=== PATIENT | male | born 2005 | race African-American/Black ===

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

== ENCOUNTER 2024-05-17 21:41 | Inpatient (IN) ==
--- NOTE | 2024-05-17 22:09 | Emergency Department Note ---
History of Present Illness General Chief complaint: Overdose (Accidental) Stated complaint: TOO MUCH ADDERALL - NO SI Time Seen by Provider: 05/17/24 21:52 History of Present Illness Maximum Pain Intensity: 3 This is a 18-year-old male presenting to the emergency department for evaluation of unintentional Adderall overdose. Patient states that he has a project that is due and was taking his own Adderall to stay awake to complete the project. He admits to taking 30 of his 15 mg Adderall pills as well as to 12.5 mg pills. Patient was found by roommates, who contacted EMS. Patient states this was not to harm himself. No suicidal or homicidal ideation. Patient does not have significant complaints. He took all of the pills between approximately 7:30 PM and 9:30 PM. He rates his current discomfort a 3/10. Additional history was later brought to my attention by [facility] police, who arrived with a 302 petition. Evidently the patient has been sending vague and nonspecific goodbye messages to friends and family. It seems that the patient lives in a single resident housing at the [place], and one of his friends went to check on him. The patient was found essentially passed out by his friend, who then contacted EMS. [place] police did arrive, and the patient was in possession of a bag with several different medications. The bag included Flexeril, Vicodin, tramadol, as well as his Adderall and additional medications. It is unclear if the patient has been utilizing these medications tonight. Not all medications are prescribed to the patient according to [place] police. Home Medications Medication Instructions Recorded Confirmed Type dextroamphetamine-amphetamine 15 15 mg PO 05/18/24 History mg tablet escitalopram oxalate 20 mg tablet 20 mg DAILY 05/18/24 05/18/24 History (Lexapro) Allergies Allergy/AdvReac Type Severity Reaction Status Date / Time Penicillins Allergy Severe Anaphylaxis Unverified 05/18/24 04:48 lactose AdvReac Mild Diarrhea Unverified 05/18/24 04:49 Past Med/Surg History Problem List (Updated 05/18/24 @ 20:42 by Choco Salgado PA-C) Drug overdose (Acute) Mental health problem (Acute) Seasonal affective disorder in remission Stimulant intoxication Autism spectrum disorder ADHD (attention deficit hyperactivity disorder) No significant past surgical history No chronic diseases present Social History Smoking Status: Never smoker Tobacco Type: E-cigarettes / Vaping Preferred Language: Maltese Communication Ability: Effective Relationship Executive Required: No Beliefs That Will Affect Care: None Feels Safe at Home: Yes Gender Identity: Male Assistive Devices: Glasses Review of Systems A total of 10 systems reviewed and were otherwise negative Physical Exam Vital Signs Vital Signs - 24 hr 05/17/24 21:48 05/17/24 21:48 05/17/24 21:49 Temperature 37.1 C Temperature Source Oral Pulse Rate 106 H 98 H Pulse Rate [Apical] Respiratory Rate 20 Respiratory Effort / Characteristics Non-Labored Spontaneous Respiratory Depth Normal Respiratory Pattern Regular Blood Pressure 126/78 Blood Pressure [Right Arm] Blood Pressure Mean 94 Blood Pressure Mean [Right Arm] Blood Pressure Position [Right Arm] Pulse Oximetry 99 99 Oxygen Delivery Method Room Air Room Air Sepsis Recent Fever Within 48 Hours No Sepsis New/Unexplained Change in Mental Status No Sepsis Action Taken by Nursing No Action Required 05/17/24 22:00 05/17/24 22:22 05/18/24 00:00 Temperature Temperature Source Pulse Rate 104 H Pulse Rate [Apical] 90 93 H Respiratory Rate 18 16 20 Respiratory Effort / Characteristics Non-Labored Spontaneous Non-Labored Respiratory Depth Normal Normal Respiratory Pattern Regular Blood Pressure Blood Pressure [Right Arm] 126/64 126/64 Blood Pressure Mean Blood Pressure Mean [Right Arm] 84 84 Blood Pressure Position [Right Arm] Semi-fowlers Lying Pulse Oximetry 100 100 98 Oxygen Delivery Method Room Air Room Air Room Air Sepsis Recent Fever Within 48 Hours Sepsis New/Unexplained Change in Mental Status Sepsis Action Taken by Nursing 05/18/24 01:42 05/18/24 03:00 Temperature Temperature Source Pulse Rate 115 H Pulse Rate [Apical] 88 Respiratory Rate 20 Respiratory Effort / Characteristics Respiratory Depth Respiratory Pattern Blood Pressure Blood Pressure [Right Arm] 136/76 Blood Pressure Mean Blood Pressure Mean [Right Arm] 96 Blood Pressure Position [Right Arm] Pulse Oximetry 96 Oxygen Delivery Method Sepsis Recent Fever Within 48 Hours Sepsis New/Unexplained Change in Mental Status Sepsis Action Taken by Nursing VITALS: Vitals are noted on the nurse's note and reviewed by myself. Vital signs stable. GENERAL: Well-developed, well-nourished, black male, who is in no acute distress and resting comfortably. Patient is cooperative with the examination. HEAD: Normocephalic atraumatic. EARS: External ear normal. External auditory canals clear, tympanic membranes pearly morfin without erythema or effusion bilaterally. EYES: Pupils equal round and reactive to light and accommodation. Conjunctivae without injection, sclerae without icterus. Extraocular movements intact. NOSE: Patent, turbinates without inflammation or discharge. MOUTH: Mucous membranes moist. Tonsils are not enlarged. Pharynx without erythema, blood, or exudate. Uvula midline. Airway patent. NECK: Supple without nuchal rigidity. No lymphadenopathy. No thyromegaly. Cervical spine is nontender. HEART: Regular rate and rhythm without murmurs gallops or rubs. LUNGS: Clear to auscultation bilaterally without wheezes, rales or rhonchi. No retractions or accessory muscle use. ABDOMEN: Positive normal bowel sounds x 4. Soft, nontender, without masses or organomegaly. No guarding or rebound tenderness. MUSCULOSKELETAL: No muscle atrophy, erythema, or edema noted. Full range of motion in all extremities. NEURO: Patient was alert and oriented to person place and time. CN II through XII grossly intact. No focal neurological deficits. Deep tendon reflexes 2+ throughout. SKIN: The skin was without rashes, erythema, edema, or bruising. Capillary refill less than 2 seconds. Course Administered Medications Acetaminophen (Acetaminophen 325 Mg Tab) 650 mg PO Q4H PRN PRN Reason: Headache or Minor Fever Stop: 06/17/24 04:49 Last Admin: 05/18/24 08:20 Dose: 650 mg Documented By: [id number] Fluoxetine HCl (Fluoxetine Hcl 20 Mg Cap) 20 mg PO QAM [facility] Stop: 06/17/24 12:29 Last Admin: 05/18/24 13:14 Dose: 20 mg Documented By: ESPERANZA Discontinued Medications Sodium Chloride (Nss) 1,000 mls @ 999 mls/hr IV .Q1H1M ONE Stop: 05/17/24 22:58 Last Infusion: 05/17/24 23:35 Dose: Infused Documented By: Admin: 05/17/24 22:23 Dose: 999 mls/hr Documented By: ANIBAL Medical Decision Making Differential Diagnosis Differential diagnosis includes, but is not limited to: Medication abuse, medication overdose, stimulant abuse, SI/HI, myocardial infarction, dysrhythmia, pericarditis, pneumothorax, aortic aneurysm/dissection, DVT/PE, anxiety, GERD, PUD, electrolyte imbalance, thyroid disorder, pneumonia, bronchitis, pancreatitis, and others Laboratory Data 05/17/24 22:10 05/17/24 22:10 Lab Results 05/17/24 05/17/24 05/17/24 Range/Units 22:10 22:33 23:18 WBC 5.30 (4.8-10.8) K/ul RBC 4.99 (4.70-6.10) M/uL Hgb 15.4 (14.0-18.0) g/dl Hct 44.9 (42.0-52.0) % MCV 90.0 (80.0-100.0) fL MCH 30.9 (25.0-34.0) pg MCHC 34.3 (32.0-36.0) g/dL RDW Std Deviation 43.3 (36.4-46.3) fL RDW Coeff of Judy 13.1 (11.5-14.5) % Plt Count 151 (130-400) K/uL MPV 12.3 (9.4-12.4) fL Immature Gran % (Auto) 0.2 % Neut % (Auto) 61.6 % Lymph % (Auto) 31.3 % [place] % (Auto) 5.7 % Eos % (Auto) 0.6 % Baso % (Auto) 0.6 % Neut # (Auto) 3.27 (1.40-6.50) K/uL Lymph # (Auto) 1.66 (1.20-3.40) K/uL [place] # (Auto) 0.30 (0.11-0.59) K/uL Eos # (Auto) 0.03 (0.00-0.50) K/uL Baso # (Auto) 0.03 (0.00-0.20) K/uL Immature Gran # (Auto) 0.01 (0.01-0.20) K/uL Sodium 135 L (136-145) mmol/L Potassium 3.7 (3.5-5.1) mmol/L Chloride 101 (98-107) mmol/L Carbon Dioxide 27 (21-32) mmol/L Anion Gap 7 (3-11) BUN 7 (6-23) mg/dl Creatinine 1.02 (0.6-1.4) mg/dl Est Cr Clr Drug Dosing 124.2 ml/min eGFR 108.58 BUN/Creatinine Ratio 6.9 L (10-20) Glucose 92 (70-99(Fasting)) mg/dl Calcium 9.8 (8.6-10.3) mg/dl Magnesium 1.7 (1.7-2.4) mg/dl Total Bilirubin 1.3 H (0.2-1.0) mg/dl AST 27 (13-39) U/L ALT 12 (7-52) U/L Alkaline Phosphatase 75 (34-104) U/L Total Creatine Kinase 299 H (30-223) U/L Troponin I High Sens < 2.3 (0-20) pg/ml Total Protein 7.8 (6.0-8.3) gm/dl Albumin 4.6 (3.4-5.0) gm/dl Globulin 3.2 (2.5-4.0) gm/dl Albumin/Globulin Ratio 1.4 (0.9-2) Lipase 5 L (11-82) U/L Urine Color Yellow Urine Appearance Clear (Clear) Urine pH 7.0 (4.5-7.5) Ur Specific [place] 1.004 (1.000-1.030) Urine Protein Negative (Negative) Urine Glucose (UA) Negative (Negative) Urine Ketones Negative (Negative) Urine Blood Negative (Negative) Urine Nitrite Negative (Negative) Urine Bilirubin Negative (Negative) Urine Urobilinogen Negative (Negative) Ur Leukocyte Esterase Negative (Negative) Salicylates < 3.0 L (3.0-30) mg/dl Urine Opiates Screen Neg (Neg) Ur Methadone, Qual Neg (Neg) Urine Fentanyl Screen Neg (Neg) Acetaminophen < 3 L (10-30) ug/ml Urine Barbiturates Neg (Neg) Ur Phencyclidine (PCP) Neg (Neg) U Amphetamin/Meth Scrn Pos H (Neg) MDMA (Ecstasy) Screen Neg (Neg) U Benzodiazepines Scrn Neg (Neg) Ur Cocaine Metabolite Neg (Neg) U Marijuana (THC) Screen Neg (Neg) Ethyl Alcohol mg/dL < 10.0 (<10.0) mg/dl SARS-CoV-2 (PCR) (Negative) 05/18/24 Range/Units 02:03 WBC (4.8-10.8) K/ul RBC (4.70-6.10) M/uL Hgb (14.0-18.0) g/dl Hct (42.0-52.0) % MCV (80.0-100.0) fL MCH (25.0-34.0) pg MCHC (32.0-36.0) g/dL RDW Std Deviation (36.4-46.3) fL RDW Coeff of Judy (11.5-14.5) % Plt Count (130-400) K/uL MPV (9.4-12.4) fL Immature Gran % (Auto) % Neut % (Auto) % Lymph % (Auto) % [place] % (Auto) % Eos % (Auto) % Baso % (Auto) % Neut # (Auto) (1.40-6.50) K/uL Lymph # (Auto) (1.20-3.40) K/uL [place] # (Auto) (0.11-0.59) K/uL Eos # (Auto) (0.00-0.50) K/uL Baso # (Auto) (0.00-0.20) K/uL Immature Gran # (Auto) (0.01-0.20) K/uL Sodium (136-145) mmol/L Potassium (3.5-5.1) mmol/L Chloride (98-107) mmol/L Carbon Dioxide (21-32) mmol/L Anion Gap (3-11) BUN (6-23) mg/dl Creatinine (0.6-1.4) mg/dl Est Cr Clr Drug Dosing ml/min eGFR BUN/Creatinine Ratio (10-20) Glucose (70-99(Fasting)) mg/dl Calcium (8.6-10.3) mg/dl Magnesium (1.7-2.4) mg/dl Total Bilirubin (0.2-1.0) mg/dl AST (13-39) U/L ALT (7-52) U/L Alkaline Phosphatase (34-104) U/L Total Creatine Kinase (30-223) U/L Troponin I High Sens (0-20) pg/ml Total Protein (6.0-8.3) gm/dl Albumin (3.4-5.0) gm/dl Globulin (2.5-4.0) gm/dl Albumin/Globulin Ratio (0.9-2) Lipase (11-82) U/L Urine Color Urine Appearance (Clear) Urine pH (4.5-7.5) Ur Specific [place] (1.000-1.030) Urine Protein (Negative) Urine Glucose (UA) (Negative) Urine Ketones (Negative) Urine Blood (Negative) Urine Nitrite (Negative) Urine Bilirubin (Negative) Urine Urobilinogen (Negative) Ur Leukocyte Esterase (Negative) Salicylates (3.0-30) mg/dl Urine Opiates Screen (Neg) Ur Methadone, Qual (Neg) Urine Fentanyl Screen (Neg) Acetaminophen (10-30) ug/ml Urine Barbiturates (Neg) Ur Phencyclidine (PCP) (Neg) U Amphetamin/Meth Scrn (Neg) MDMA (Ecstasy) Screen (Neg) U Benzodiazepines Scrn (Neg) Ur Cocaine Metabolite (Neg) U Marijuana (THC) Screen (Neg) Ethyl Alcohol mg/dL (<10.0) mg/dl SARS-CoV-2 (PCR) NEGATIVE (Negative) MDM Narrative Physical exam and history were performed. Nursing notes, EMR, and Medication List were personally reviewed. No social concerns were identified as barriers to patients care. History was provided by the Patient, EMS, and [facility] police. Patient appears to have overdosed on Adderall. The patient's history is concerning, as he was identified having several pills that were not prescribed to him. These are primarily opioids and other similar sedatives. Patient does have history of mental health disease. He is evasive with answering questions. IV access was established and labs were obtained. Patient was hydrated with normal saline. Patient's case was discussed with my attending. I also reached out to poison control, and recommendation was to monitor the patient until roughly 2 AM. Patient's blood work is as above and was reviewed. He does not have a significantly elevated white blood cell count, gross anemia, bandemia, or significant electrolyte imbalance. Transaminases not diagnostic. Tylenol and salicylates are negative. COVID is negative. Urine is with amphetamines, which was expected. Remaining evaluation was unremarkable and patient was medically cleared at 02: 00. Patient was evaluated by case management, as well as my attending physician. The patient has a 302 completed by [place] police. After discussion with my attending physician, the patient is voluntary for mental health care. Escalation of care was considered, and patient was accepted to 3 S. at this facility. Patient was discharged to their service. The chart was completed utilizing [employer] Speech Voice Recognition Software. Grammatical errors, random word insertions, pronoun errors, and incomplete sentences are an occasional consequence of this system due to software limitations, ambient noise, and hardware issues. Any formal questions or concerns about the content, text, or information contained within the body of this dictation should be directly addressed to the provider for clarification. Impression & Plan Mental health problem, Drug overdose Discharge Plan Visit Data Chief Complaint: Overdose (Accidental) Stated Complaint: TOO MUCH ADDERALL - NO SI ED Provider: Loan Augustin ED Midlevel Provider: Choco Salgado Discharge Problem: Mental health problem, Drug overdose Patient Disposition: Admitted As Inpatient Discharge Instructions Interventions: ED Discharge Assessment Last Done: 05/18/24 04:30
[2024-05-17] MEDS: SODIUM CHLORIDE 0.9% 1,000 ML IV ONE (22:23)
[2024-05-17 22:45] LABS: Alanine Aminotransferase 12 U/L (7-52); Albumin Globulin Ratio 1.4 (0.9-2); Albumin Level 4.6 gm/dl (3.4-5.0); Alkaline Phosphatase 75 U/L (34-104); Anion Gap 7 (3-11); Aspartate Aminotransferase 27 U/L (13-39); BUN Creatinine Ratio 6.9 (10-20); Bilirubin,Total 1.3 mg/dl (0.2-1.0); Blood Urea Nitrogen 7 mg/dl (6-23); Calcium 9.8 mg/dl (8.6-10.3); Carbon Dioxide 27 mmol/L (21-32); Chloride 101 mmol/L (98-107); Creatine Kinase 299 U/L (30-223); Creatinine Clr Calc Pharmacy 124.2 ml/min; Globulin 3.2 gm/dl (2.5-4.0); Glucose 92 mg/dl (70-99(Fasting)); Lipase 5 U/L (11-82); Magnesium 1.7 mg/dl (1.7-2.4); Potassium 3.7 mmol/L (3.5-5.1); Sodium 135 mmol/L (136-145); Total Protein 7.8 gm/dl (6.0-8.3)
[2024-05-17 22:46] LABS: Hematocrit (blood only) 44.9 % (42.0-52.0); Hemoglobin 15.4 g/dl (14.0-18.0); Mean Corpuscular Hemoglobin 30.9 pg (25.0-34.0); Mean Corpuscular Hgb Conc 34.3 g/dL (32.0-36.0); Mean Platelet Volume 12.3 fL (9.4-12.4); Platelet Count 151 K/uL (130-400); RDW Coefficient of Variation 13.1 % (11.5-14.5); RDW Standard Deviation 43.3 fL (36.4-46.3); Red Blood Count 4.99 M/uL (4.70-6.10)
[2024-05-17 22:50] LABS: Acetaminophen < 3 ug/ml (10-30); Salicylate < 3.0 mg/dl (3.0-30)
[2024-05-17 22:52] LABS: Troponin I High Sensitivity < 2.3 pg/ml (0-20)
[2024-05-17 23:07] LABS: Basophils # (auto) 0.03 K/uL (0.00-0.20); Basophils % (auto) 0.6 %; Eosinophils # (auto) 0.03 K/uL (0.00-0.50); Eosinophils % (auto) 0.6 %; Immature Granulocytes # (auto) 0.01 K/uL (0.01-0.20); Immature Granulocytes % (auto) 0.2 %; Lymphocytes # (auto) 1.66 K/uL (1.20-3.40); Lymphocytes % (auto) 31.3 %; Monocytes % (auto) 5.7 %; Neutrophils # (auto) 3.27 K/uL (1.40-6.50); Neutrophils % (auto) 61.6 %
[2024-05-17 23:45] LABS: Appearance Urine Clear (Clear); Bilirubin Urine Negative (Negative); Blood Urine Negative (Negative); Color Urine Yellow; Glucose Urine UA Negative (Negative); Ketones Urine Negative (Negative); Leukocyte Esterase Urine Negative (Negative); Nitrite Urine Negative (Negative); Protein Urine Negative (Negative); Specific Gravity Urine 1.004 (1.000-1.030); Urobilinogen Urine Negative (Negative)
[2024-05-18 00:54] LABS: Amphetamines+Metham, Urine Pos (Neg); Barbiturates, Urine Neg (Neg); Benzodiazepine, Urine Neg (Neg); Cocaine, Urine Neg (Neg); Fentanyl, Urine Neg (Neg); MDMA (Ecstacy), Urine Neg (Neg); Marijuana, Urine Neg (Neg); Methadone, Urine Neg (Neg); Opiate, Urine Neg (Neg); Phencyclidine, Urine Neg (Neg)
[2024-05-18] MEDS ORDERED: ALUMINUM/MAGNESIUM SUSP 30 ML UDC PO PRN (04:50)
[2024-05-18] MEDS ORDERED: SODIUM CHLORIDE 0.65% NA SOLN 45 ML (OCEAN) PRN (04:50)
[2024-05-18] MEDS ORDERED: BISMUTH SUBSALICYLATE 262 MG CHEW PO PRN (04:50)
[2024-05-18] MEDS ORDERED: MAGNESIUM HYDROXIDE SUSP 30 ML UDC PO PRN (04:50)
[2024-05-18] MEDS ORDERED: hydrOXYzine HCl 25 MG TAB PO PRN (04:50)
[2024-05-18] MEDS: ACETAMINOPHEN 325 MG TAB PO PRN (08:20)
--- NOTE | 2024-05-18 09:07 | History & Physical ---
Date of Service May 18, 2024 Impression / Recommendations Impression TATY VIDES is a 18-year-old man and [employer] student who currently lives on campus alone, has a history of ADHD, Seasonal affective disorder, ASD and was admitted on 05/18/24 04:11 on a 201 voluntary commitment for suicide attempt via Adderall overdose. Diagnostically consistent with Adderall misuse, ADHD, and historical diagnoses of ASD and seasonal affective disorder. No evidence at this time to suggest Adderall overdose was done as a suicide attempt, rather seems driven by ADHD with procrastination, impulsivity and poor insight into side effects and mechanism of action of his medication. Encouragingly he doesn't seem to be having any negative effects from his significant Adderall misuse and reports stable mood today though likely is still experiencing some of the stimulants effects as he slept poorly overnight. History of brief episodes of psychosis inconsistent with primary psychotic disorder and he denies any concurrent symptoms to suggest bipolar spectrum illness. More likely suspect driven by cannabis use vs stress response in context of ASD vs side effect of stimulants if he is overutilizing this more frequently than he reports. Discussed these possibilities and he is agreeable to discontinuation of cannabis and tracking his sleep and mood to determine if there are any patterns with when these brief psychotic symptoms emerge. Some paraesthesias associated with blood draw in the ED, no signs of acute neurological injury at this time nor per ED provider assessment but will continue to monitor and he agrees to alert staff should any new pain, weakness, numbness/tingling or changes occur as then hospitalist provider will be consulted to determine if any further workup is needed. Discussed medication treatment options in detail. Discussed risks, benefits and alternatives. Patient would like to start and consented to discontinuation of escitalopram due to episodes of restlessness after taking it in exchange for trial of fluoxetine (especially beneficial since he typically only takes an SSRI for half of the year and this has lower risk of withdrawal side effects). Reviewed side effects including but not limited to: GI, ZELAYA, sexual side effects, and counseled on black box warning of potential for emergence of or increased SI and need to let staff know should this occur or should they feel unsafe. Also discussed importance of seeking emergency care following discharge if this side effect occurs in the future. Will discontinue Adderall for now, in the future would consider use of Adderall XR or Vyvanse to minimize risk of misuse vs Strattera trial. Discussed option to consider use of clonidine as this can sometimes help with impulsivity, he'd like to consider this after we determine response to switch to fluoxetine. The patient's use history and negative consequences suggests problematic stimulant use, however given this was only the second time he used his medication not as prescribed does not yet rise to the level of stimulant use disorder. Motivational interviewing was done as a brief intervention. Intervention was greater than 5 minutes in length and included discussion of medication mechanism of action, risks/benefits of use and motivation to use the medication appropriately moving forward. The patient is in action stage with regards to transtheoretical model of change. Overall I spent a total of 80 minutes for this admission including review of chart records, review of labwork, direct evaluation of the patient, counseling the patient, ordering medication, risk assessment, discussion with the psychiatric liason RN and documentation in the electronic health record. (1) Stimulant intoxication: (2) ADHD (attention deficit hyperactivity disorder): (3) Autism spectrum disorder: (4) Seasonal affective disorder in remission: Plan 05/18/2024: The patient was admitted to the [facility] ([facility] unit) on q15 min checks (behavioral with suicide precautions) for safety. The patient will participate in group, recreational, and milieu therapies and will be offered additional individual and family sessions as clinically appropriate. -Stop escitalopram and start fluoxetine 20mg daily -Hold Adderall for now given overdose/misuse, recommend consideration of Adderall XR vs Vyvanse in the future -Will consider option for clonidine in coming days -May benefit from more structured therapy such as IOP Inventory Assets Strengths: supportive relationships, willing to get treatment Needs: safety and stabilization, medication adjustment, additional coping skills, increased outpatient services Suicide Risk Level Suicide Risk Level: Moderate (q15 min suicide checks) (denies current mood symptoms nor SI but with recent stimulant prescription misuse, impulsivity but feels safe in the hospital and feels able to ask for help ) Risk Factors Assessment Male: Yes : No Do You Have Access To A Gun?: No (father has gun in his car locked in gloovebox but he doesn't have access) Health Problems: No Mental Health Diagnoses: Yes Substance Use Disorders: Yes (stimulant misuse leading to current hospitalization) Previous Attempt: Yes Family History of Suicide: Yes Previous Psychiatric Hospitalization: Yes Hopelessness: No Protective Factors Assessment 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 Chief Complaint "It wasn't a suicide attempt, I was cramming to get my project done". History of Present Illness He presents for psychiatric admission for concern for suicide attempt via Adderall overdose. He had a great time on spring but returned to campus and then had to cram for a project he didn't finish for one of his classes. Because of this he stayed up all night Thursday into Thursday working on it and then took a quick nap, went to class, and came back to his dorm to keep working. He felt behind and was struggling to keep working due to his fatigue from pulling an all nighter the previous night so he started to take extra Adderall. After doing this he found "it was working" and "I was worried I wasn't going to finish the project" so he just kept taking more Adderall. At some point he really started to make progress with his project and noted that he thought "this is working really well" and kept taking more Adderall because it was helping. He notes then he took a nap in front of his computer and his friend found him with the pills and called police. He thinks he took about 30-50 pills of various doses of Adderall (as his dose was just increased and he had a new prescription bottle) over 2 hours. He didn't think at any point that it could cause harm noting "All is does is make you smarter". Asked about police reporting other medication in a bag in his room, including tramadol and Vicodin, he reports this are old prescriptions and were out because he was unpacking after returning to campus from break. Reflecting back he now notes, "I wasn't in the greatest decision making mind". He also reflects that "Uh, in my brain, I've never had any side effects before so why would taking more pills do anything when I'm supposed to be taking the pills and it's just going to make me smarter?". Reports in the past he's misused his prescription by taking 2-3 extra doses of Adderall to help him be more pr oductive with school work but never anything to this extent. He denies any recent symptoms of depression nor anxiety noting he felt "generally happy" especially after returning from a family spring break trip to [place]. He feels his biggest challenge is with ADHD and managing his inattention and procrastination which often impacts his schoolwork and autism impacting his ability to read social cues and understand others emotionally. He describes typically his sleep habits are good that he gets 6-7 hours of sleep, usually goes to bed at 1am and sleeps till 10am. Slept well over break but had more difficulty falling asleep after returning to campus on Thursday due to his worry about the project so then he stayed up all night to work on it. He is currently prescribed psychiatric medications: Lexapro has been taking 10 or 15mg daily (has been on and off over the years, typically starts end of fall until start of spring, typically stops it around May/June, dose increased to 20mg a few weeks ago but hadn't started it yet because hadn't picked up new prescription. Has been taking this for about 1.5 months, gives him sense of restlessness after taking it which he describes as restless legs but only occurs after taking the dose and not at night before bed) and Adderall 12.5mg qAM and 10mg around 1pm (has been on this dose for 3-4 months, but has been on Adderall since middle school, hasn't noticed any side effects). Dose recently increased to 15mg qAM and 12.5mg qafternoon but he hadn't started the higher dose yet. Psychiatric ROS notable for no current nor history of symptoms of alexa, PTSD, OCD nor eating disorder. He describes a history of psychosis of hearing things and seeing things that can occur intermittently, when this last occurred he thought someone was going to come through his mirror and harm him. He describes these symptoms will last for about 24 hours and doesn't stop until he goes to sleep and sometimes the voices keep him awake. Last episode was about a month ago, he notes this typically occurs when he experiences an episode of high stress. History of self-harm in the past via cutting his wirst at age 12 in context of traumatic event with a peer. Past Psychiatric History Previous Psych History: ADHD, SAD, ASD Current Psychiatric Diagnosis: Unspecified Mood Disorder Outpatient Services: no current psychiatrist -therapy with [facility] teletherapy twice per month Previous Psych Admissions: age 12 inpt stay Do You Have Access To A Gun?: No (father has gun in his car locked in gloovebox but he doesn't have access) History of Previous Suicide Attempt: Yes (age 12-cut self and took overdose) Past Medication Trials: -Ritalin formulation (many years ago) Past Head Trauma/Neuro History History of Concussion/Seizure: No Allergies Allergy/AdvReac Type Severity Reaction Status Date / Time Penicillins Allergy Severe Anaphylaxis Unverified 05/18/24 04:48 lactose AdvReac Mild Diarrhea Unverified 05/18/24 04:49 Home Medications Medication Instructions Recorded Confirmed Type dextroamphetamine-amphetamine 15 15 mg PO 05/18/24 History mg tablet escitalopram oxalate 20 mg tablet 20 mg DAILY 05/18/24 05/18/24 History (Lexapro) Family History Family History of: Alcoholism/Drug Abuse and Suicide Attempts Family Mental Health History Comment: Pt reports significant history of suicide attempt maternal aunt and alcohol use on maternal side of family. Paternal side ADHD. Alcohol History Hx of Alcohol Use Over the Past 12 Months: No AUDIT Total Score: 0 Smoking Use Have You Smoked or Used Tobacco Products in the Last 30 Days: Yes Smoking Status: Never smoker Substance History Hx of Prescription Med Misuse Over the Past 12 Months: Yes (Overdosed on Adderall) Hx of Over the Counter Med Misuse Over the Past 12 Months: No Hx of Inhalent Misuse Over the Past 12 Months: No Hx of Organic Substance Use Over the Past 12 Months: Yes (smokes marijuana) Hx of Illegal Substances/Street Drug Use Over Past 12 Months: No Problems as a Result of Past Substance Use: Attempted Suicide and Other Problems as a Result of Past Substance Use Comments: 201 secondary to Overdose Smoke cannabis via vape pen, typically 1-2 times per week, does it socially with peers. Last used it Thursday night "before I used it to lock in" Personal History Living Arrangements: Apartment Childhood: Parents , younger sister and brother. Parents are very supportive. 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 Beliefs That Will Affect Care: None Feels Safe at Home: Yes Gender Identity: Male Assistive Devices: Glasses Review of Systems Review of Systems: All systems reviewed & are unremarkable except as noted in HPI & below (right hand tingling, cannot fully close hand which he attributes to following blood draw in ED ) Physical Exam Psychiatric: Orientation: alert and oriented x 3 Apperance: appropriately dressed and appropriately groomed Eye Contact: good eye contact Motor Behavior: no abnormal motor movements Speech: normal rate/rhythm/volume of speech Affect: euthymic affect Mood: no depressed mood and no anxious mood Thought Process: goal directed thought process Thought Content: reality based without delusions Suicidal Thoughts: denies suicidal thoughts, denies suicidal plan and denies suicidal intent Homicidal Thoughts: denies homicidal thoughts Hallucinations: no auditory hallucinations and no visual hallucinations Cognition: recent memory grossly intact, remote memory grossly intact, attention grossly intact and language grossly intact Estimated In telligence: consistent with education level Insight: + limited insight Judgment: + limited judgement Vital Signs (Past 24 Hours): Last Vital Signs Temp 36.9 C 05/18/24 05:06 Pulse 69 05/18/24 05:06 Resp 18 05/18/24 05:06 BP 127/80 05/18/24 05:06 Pulse Ox 98 05/18/24 05:06 O2 Del Method Room Air 05/18/24 05:06 Exam Statement: A physical exam was performed in the ED by Dr. Salgado for the purposes of medical clearance. I accept that physical as correct and adequate for the purposes of the inpatient physical exam. Results & Data ([facility]) Laboratory Results Laboratory Results - last 24 hr 05/17/24 05/17/24 05/17/24 22:10 22:33 23:18 WBC 5.30 RBC 4.99 Hgb 15.4 Hct 44.9 MCV 90.0 MCH 30.9 MCHC 34.3 RDW Std Deviation 43.3 RDW Coeff of Judy 13.1 Plt Count 151 MPV 12.3 Immature Gran % (Auto) 0.2 Neut % (Auto) 61.6 Lymph % (Auto) 31.3 Red[place] % (Auto) 5.7 Eos % (Auto) 0.6 Baso % (Auto) 0.6 Neut # (Auto) 3.27 Lymph # (Auto) 1.66 Redwood # (Auto) 0.30 Eos # (Auto) 0.03 Baso # (Auto) 0.03 Immature Gran # (Auto) 0.01 Sodium 135 L Potassium 3.7 Chloride 101 Carbon Dioxide 27 Anion Gap 7 BUN 7 Creatinine 1.02 Est Cr Clr Drug Dosing 124.2 eGFR 108.58 BUN/Creatinine Ratio 6.9 L Glucose 92 Calcium 9.8 Magnesium 1.7 Total Bilirubin 1.3 H AST 27 ALT 12 Alkaline Phosphatase 75 Total Creatine Kinase 299 H Troponin I High Sens < 2.3 Total Protein 7.8 Albumin 4.6 Globulin 3.2 Albumin/Globulin Ratio 1.4 Lipase 5 L Urine Color Yellow Urine Appearance Clear Urine pH 7.0 Ur Specific [place] 1.004 Urine Protein Negative Urine Glucose (UA) Negative Urine Ketones Negative Urine Blood Negative Urine Nitrite Negative Urine Bilirubin Negative Urine Urobilinogen Negative Ur Leukocyte Esterase Negative Salicylates < 3.0 L Urine Opiates Screen Neg Ur Methadone, Qual Neg Urine Fentanyl Screen Neg Acetaminophen < 3 L Urine Barbiturates Neg Ur Phencyclidine (PCP) Neg U Amphetamines Confirm Pending U Amphetamin/Meth Scrn Pos H U Methamphetamin Confrm Pending MDMA (Ecstasy) Screen Neg U Benzodiazepines Scrn Neg Ur Cocaine Metabolite Neg U Marijuana (THC) Screen Neg Drug Screen Comment Pending Ethyl Alcohol mg/dL < 10.0 SARS-CoV-2 (PCR) 05/18/24 02:03 WBC RBC Hgb Hct MCV MCH MCHC RDW Std Deviation RDW Coeff of Judy Plt Count MPV Immature Gran % (Auto) Neut % (Auto) Lymph % (Auto) Redwood % (Auto) Eos % (Auto) Baso % (Auto) Neut # (Auto) Lymph # (Auto) [place] # (Auto) Eos # (Auto) Baso # (Auto) Immature Gran # (Auto) Sodium Potassium Chloride Carbon Dioxide Anion Gap BUN Creatinine Est Cr Clr Drug Dosing eGFR BUN/Creatinine Ratio Glucose Calcium Magnesium Total Bilirubin AST ALT Alkaline Phosphatase Total Creatine Kinase Troponin I High Sens Total Protein Albumin Globulin Albumin/Globulin Ratio Lipase Urine Color Urine Appearance Urine pH Ur Specific [place] Urine Protein Urine Glucose (UA) Urine Ketones Urine Blood Urine Nitrite Urine Bilirubin Urine Urobilinogen Ur Leukocyte Esterase Salicylates Urine Opiates Screen Ur Methadone, Qual Urine Fentanyl Screen Acetaminophen Urine Barbiturates Ur Phencyclidine (PCP) U Amphetamines Confirm U Amphetamin/Meth Scrn U Methamphetamin Confrm MDMA (Ecstasy) Screen U Benzodiazepines Scrn Ur Cocaine Metabolite U Marijuana (THC) Screen Drug Screen Comment Ethyl Alcohol mg/dL SARS-CoV-2 (PCR) NEGATIVE Current Inpatient Medications Current Inpatient Medications: Current Inpatient Medications Acetaminophen (Acetaminophen 325 Mg Tab) 650 mg PO Q4H PRN PRN Reason: Headache or Minor Fever Stop: 06/17/24 04:49 Last Admin: 05/18/24 08:20 Dose: 650 mg Al Hydrox/Mg Hydrox/Simethicone (Aluminum/Magnesium Susp 30 Ml Udc) 30 ml PO Q4H PRN PRN Reason: GI Upset Stop: 06/17/24 04:49 Bismuth Subsalicylate (Bismuth Subsalicylate 262 Mg Chew) 2 tab PO Q30M PRN PRN Reason: Loose Stool/Diarrhea Stop: 06/17/24 04:49 Hydroxyzine HCl (Hydroxyzine Hcl 25 Mg Tab) 50 mg PO HSZ PRN PRN Reason: Insomnia Stop: 06/17/24 04:49 Hydroxyzine HCl (Hydroxyzine Hcl 25 Mg Tab) 25 mg PO Q4H PRN PRN Reason: Anxiety Stop: 06/17/24 04:49 Magnesium Hydroxide (Magnesium Hydroxide Susp 30 Ml Udc) 30 ml PO DAILY PRN PRN Reason: Constipation Stop: 06/17/24 04:49 Sodium Chloride (Sodium Chloride 0.65% Na Soln 45 Ml ([place])) 1 - 2 sprays NA PRN PRN PRN Reason: Nasal Dryness/Congestion Stop: 06/17/24 04:49
--- NOTE | 2024-05-18 11:34 | Electrocardiogram Report ---
Test Reason : Blood Pressure : */* mmHG Vent. Rate : 76 BPM Atrial Rate : 76 BPM P-R Int : 144 ms QRS Dur : 88 ms QT Int : 372 ms P-R-T Axes : 58 -31 38 degrees QTcB Int : 418 ms Normal sinus rhythm Left axis deviation Abnormal ECG No previous ECGs available Confirmed by Pankaj Ontiveros ([id number]) on 05/18/2024 11:34:08 AM Referred By: REFERRED SELF Confirmed By: Pankaj Ontiveros
[2024-05-18] MEDS: FLUoxetine HCL 20 MG CAP PO SCH (13:14)
--- NOTE | 2024-05-18 18:06 | Electrocardiogram Report ---
Test Reason : Blood Pressure : */* mmHG Vent. Rate : 74 BPM Atrial Rate : 74 BPM P-R Int : 152 ms QRS Dur : 86 ms QT Int : 372 ms P-R-T Axes : 79 -41 71 degrees QTcB Int : 412 ms Normal sinus rhythm Left axis deviation Abnormal ECG When compared with ECG of 17-May-2024 22:18, No significant change was found Confirmed by Pankaj Ontiveros ([id number]) on 05/18/2024 6:06:16 PM Referred By: REFERRED SELF Confirmed By: Pankaj Ontiveros
[2024-05-18] MEDS: hydrOXYzine HCl 25 MG TAB PO PRN (22:34)
--- NOTE | 2024-05-19 08:37 | Psychiatric Progress Note ---
Date of Service May 19, 2024 Impression / Recommendations Impression TATY VIDES is a 18-year-old man and [employer] student who currently lives [place] campus alone, has a history of ADHD, Seasonal affective disorder, ASD and was admitted on 05/18/24 04:11 on a 201 voluntary commitment for suicide attempt via Adderall overdose. Diagnostically consistent with Adderall misuse, ADHD, and historical diagnoses of ASD and seasonal affective disorder. No evidence at this time to suggest Adderall overdose was done as a suicide attempt, rather seems driven by ADHD with procrastination, impulsivity and poor insight into side effects and mechanism of action of his medication. Encouragingly he doesn't seem to be having any negative effects from his significant Adderall misuse and reports stable mood today though likely is still experiencing some of the stimulants effects as he slept poorly overnight. A: Mood remained stable and he continues to deny any thoughts of suicide. Sleep is improving and no evidence for any hypomania or alexa at this time. Discussed options for additional medication he consents to starting clonidine for use for ADHD and for potential benefits for impulsivity anxiety and sleep. Reviewed side effects including but not limited to syncope, low blood pressure. He is tolerating the transition to fluoxetine well and without any of the side effects he previously had with the S-Citalopram. Symptom questionnaires reviewed notable for PHQ-9 score of 4 consistent with his report of no recent significant depressive symptoms, mood disorder questionnaire inconsistent with a bipolar affective disorder diagnosis of Mcintosh BPD screen with some possible cluster B traits but I also see significant overlap with autism and he agrees with this assessment. Overall, I spent a total of 35 minutes on this case including meeting with the patient, reviewing the chart, nursing report, multidisciplinary team meeting, orders, and documentation. (1) Stimulant intoxication: (2) ADHD (attention deficit hyperactivity disorder): (3) Autism spectrum disorder: (4) Seasonal affective disorder in remission: Plan 05/19/2024: -Start clonidine 0.1mg HS 05/18/2024: The patient was admitted to the [facility] ([facility] unit) on q15 min checks (behavioral with suicide precautions) for safety. The patient will participate in group, recreational, and milieu therapies and will be offered additional individual and family sessions as clinically appropriate. -Stop escitalopram and start fluoxetine 20mg daily -Hold Adderall for now given overdose/misuse, recommend consideration of Addera ll XR vs Vyvanse in the future -Will consider option for clonidine in coming days -May benefit from more structured therapy such as IOP Inventory Assets Strengths: supportive relationships, willing to get treatment Needs: safety and stabilization, medication adjustment, additional coping skills, increased outpatient services Suicide Risk Level Suicide Risk Level: Moderate (q15 min suicide checks) (denies current mood symptoms nor SI but with recent stimulant prescription misuse, impulsivity but mood is stable, denies SI and feels safe in the hospital and feels able to ask for help ) Risk Factors Assessment Male: Yes : No Do You Have Access To A Gun?: No Health Problems: No Mental Health Diagnoses: Yes Substance Use Disorders: Yes (stimulant misuse leading to current hospitalization) Previous Attempt: Yes Family History of Suicide: Yes Previous Psychiatric Hospitalization: Yes Hopelessness: No Protective Factors Assessment Employed: No (but [employer] student) Stable Relationships: Yes Supportive Family: Yes Good Rapport with Provider: Yes Interval History Identifying Information TATY VIDES is a 18-year-old man and [employer] student who currently [place] campus alone, has a history of ADHD, Seasonal affective disorder, ASD and was admitted on 05/18/24 04:11 on a 201 voluntary commitment for suicide attempt via Adderall overdose. Chief Complaint "A lot better, I slept more". Review of Systems Sleep Information Total Hours of Sleep: 5.75 Sleep Comments: he received 2 doses of Vistaril PRN. The first dose did not induce sleep. The second dose was successful. Meal Information Percent Meal Consumed - Breakfast: 100 Percent Meal Consumed - Lunch: 100 Percent Meal Consumed - Dinner: 100 Subjective Subjective Patient was seen & assessed and interval progress reviewed with nursing and social work. Attended all groups, getting along with peers. Took two doses of prn Vistaril to help with sleep. Reported mood last night as "satisfied". Today he reports his mood is "a lot better" and reflects that he feels he slept well last night noting "I needed sleep". He denies experiencing any restlessness or what he previously referred to as less restless leg syndrome since starting the fluoxetine yesterday. He is pleased about this. He is interested in trying the clonidine tonight to help with his sleep and potentially lessen ADHD symptoms over time. He has been talking with his family and is considering the option for [facility] IOP and is interested in referral for a local outpatient psychiatrist. He continues to deny any thoughts of suicide. Physical Exam Psychiatric Orientation: alert and oriented x 3 Apperance: appropriately dressed and appropriately groomed Eye Contact: good eye contact Motor Behavior: no abnormal motor movements Speech: normal rate/rhythm/volume of speech Affect: euthymic affect Mood: no depressed mood and no anxious mood Thought Process: goal directed thought process Thought Content: reality based without delusions Suicidal Thoughts: denies suicidal thoughts, denies suicidal plan and denies suicidal intent Homicidal Thoughts: denies homicidal thoughts Hallucinations: no auditory hallucinations and no visual hallucinations Cognition: recent memory grossly intact, remote memory grossly intact, attention grossly intact and language grossly intact Estimated Intelligence: consistent with education level Insight: + limited insight Judgment: + fair judgement Vital Signs (Past 24 Hours) Last Vital Signs Temp 36.6 C 05/19/24 06:00 Pulse 99 H 05/19/24 06:24 Resp 16 05/19/24 06:00 BP 113/59 L 05/19/24 06:24 Pulse Ox 98 05/19/24 06:00 O2 Del Method Room Air 05/19/24 06:00 Results & Data ([facility]) Current Inpatient Medications Current Inpatient Medications: Current Inpatient Medications Acetaminophen (Acetaminophen 325 Mg Tab) 650 mg PO Q4H PRN PRN Reason: Headache or Minor Fever Stop: 06/17/24 04:49 Last Admin: 05/18/24 08:20 Dose: 650 mg Al Hydrox/Mg Hydrox/Simethicone (Aluminum/Magnesium Susp 30 Ml Udc) 30 ml PO Q4H PRN PRN Reason: GI Upset Stop: 06/17/24 04:49 Bismuth Subsalicylate (Bismuth Subsalicylate 262 Mg Chew) 2 tab PO Q30M PRN PRN Reason: Loose Stool/Diarrhea Stop: 06/17/24 04:49 Fluoxetine HCl (Fluoxetine Hcl 20 Mg Cap) 20 mg PO QAM TAPAN Stop: 06/17/24 12:29 Last Admin: 05/18/24 13:14 Dose: 20 mg Hydroxyzine HCl (Hydroxyzine Hcl 25 Mg Tab) 50 mg PO HSZ PRN PRN Reason: Insomnia Stop: 06/17/24 04:49 Last Admin: 05/18/24 23:35 Dose: 50 mg Hydroxyzine HCl (Hydroxyzine Hcl 25 Mg Tab) 25 mg PO Q4H PRN PRN Reason: Anxiety Stop: 06/17/24 04:49 Magnesium Hydroxide (Magnesium Hydroxide Susp 30 Ml Udc) 30 ml PO DAILY PRN PRN Reason: Constipation Stop: 06/17/24 04:49 Sodium Chloride (Sodium Chloride 0.65% Na Soln 45 Ml ([place])) 1 - 2 sprays NA PRN PRN PRN Reason: Nasal Dryness/Congestion Stop: 06/17/24 04:49 Mental Health & Subst Abuse Tx Therapist Name of Therapist: Sees a therapist through [facility] Date of Therapist Appointment: 05/20/24 Post Discharge Appointments Primary Care Physician Name Of Family Doctor/PCP: Payton Light Date of Future Appointment with PCP: unsure
[2024-05-19] MEDS: cloNIDine HCL 0.1 MG TAB PO SCH (22:27)
--- NOTE | 2024-05-20 09:08 | Discharge Summary ---
Date of Service May 20, 2024 History of Present Illness He presents for psychiatric admission for concern for suicide attempt via Adderall overdose. He had a great time on spring but returned to campus and then had to cram for a project he didn't finish for one of his classes. Because of this he stayed up all night Thursday into Thursday working on it and then took a quick nap, went to class, and came back to his dorm to keep working. He felt behind and was struggling to keep working due to his fatigue from pulling an all nighter the previous night so he started to take extra Adderall. After doing this he found "it was working" and "I was worried I wasn't going to finish the project" so he just kept taking more Adderall. At some point he really started to make progress with his project and noted that he thought "this is working really well" and kept taking more Adderall because it was helping. He notes then he took a nap in front of his computer and his friend found him with the pills and called police. He thinks he took about 30-50 pills of various doses of Adderall (as his dose was just increased and he had a new prescription bottle) over 2 hours. He didn't think at any point that it could cause harm noting "All is does is make you smarter". Asked about police reporting other medication in a bag in his room, including tramadol and Vicodin, he reports this are old prescriptions and were out because he was unpacking after returning to campus from . Reflecting back he now notes, "I wasn't in the greatest decision making mind". He also reflects that "Uh, in my brain, I've never had any side effects before so why would taking more pills do anything when I'm supposed to be taking the pills and it's just going to make me smarter?". Reports in the past he's misused his prescription by taking 2-3 extra doses of Adderall to help him be more productive with school work but never anything to this extent. He denies any recent symptoms of depression nor anxiety noting he felt "generally happy" especially after returning from a family spring trip to [place]. He feels his biggest challenge is with ADHD and managing his inattention and procrastination which often impacts his schoolwork and autism impacting his ability to read social cues and understand others emotionally. He describes typically his sleep habits are good that he gets 6-7 hours of sleep, usually goes to bed at 1am and sleeps till 10am. Slept well over break but had more difficulty falling asleep after returning to campus on Thursday due to his worry about the project so then he stayed up all night to work on it. He is currently prescribed psychiatric medications: Lexapro has been taking 10 or 15mg daily (has been on and off over the years, typically starts end of fall until start of spring, typically stops it around May/June, dose increased to 20mg a few weeks ago but hadn't started it yet because hadn't picked up new prescription. Has been taking this for about 1.5 months, gives him sense of restlessness after taking it which he describes as restless legs but only occurs after taking the dose and not at night before bed) and Adderall 12.5mg qAM and 10mg around 1pm (has been on this dose for 3-4 months, but has been on Adderall since middle school, hasn't noticed any side effects). Dose recently increased to 15mg qAM and 12.5mg qafternoon but he hadn't started the higher dose yet. Psychiatric ROS notable for no current nor history of symptoms of alexa, PTSD, OCD nor eating disorder. He describes a history of psychosis of hearing things and seeing things that can occur intermittently, when this last occurred he thought someone was going to come through his mirror and harm him. He describes these symptoms will last for about 24 hours and doesn't stop until he goes to sleep and sometimes the voices keep him awake. Last episode was about a month ago, he notes this typically occurs when he experiences an episode of high stress. History of self-harm in the past via cutting his wirst at age 12 in context of traumatic event with a peer. Physical Exam Vital Signs (Past 24 Hours) Last Vital Signs Temp 36.7 C 05/20/24 06:30 Pulse 75 05/20/24 06:32 Resp 16 05/20/24 06:30 BP 114/75 05/20/24 06:32 Pulse Ox 98 05/19/24 06:00 O2 Del Method Room Air 05/19/24 06:00 Principal Diagnosis Attention-Deficit/Hyperactivity Disorder, Autism Spectrum Disorder Psychiatric Data See daily stay summary. In short, patient was engaged with the social/ther apeutic milieu of the unit, safety was maintained and the patient was cooperative with care. Medication changes included initiation of clonidine 0.1mg HS for ADHD, discontinuation of Adderall IR (recommend consideration for Adderall XR or Vyvanse in the future), discontinuation of escitalopram due to side effects, initiation of fluoxetine 20mg for history of seasonal affective disorder and Vistaril 50mg HS prn for anxiety/insomnia and they tolerated this well. A support session was held and safety plan was completed prior to discharge. They participated in safety planning and in discussions about ways to seek support and recognizing warning signs and utilizing coping skills. Reviewed ways to have their safety plan and contacts easily available should thoughts of SI re-emerge in the future. Reviewed importance of seeking emergency care should SI intensify, worsen or should they feel unsafe in the future which they agree to do. On the day of discharge they stated their mood was "a lot better" and "really good" and remained future-oriented including spending time with his family, getting back to classes, seeing his friends, and engaging in aftercare appointments for psychiatry, therapy and possibly eventually with [facility] and [facility]. Day of Discharge Assessment Today the patient voices readiness for discharge. They note improvement in mood and anxiety. They deny thoughts of harm to self or others. Thoughts are organized and they are clinically improved from admission. There is no evidence of psychosis. They improved in the hospital with support and medication adjustments. They agree to take medications as prescribed and keep follow-up appointments. At the time of the discharge they are deemed to be stable and appropriate for outpatient level of care. They are not deemed to be at imminent risk of harm to self or others. They are aware of emergency and crisis services. Knows to call 911 or go to nearest emergency care center if in a crisis which cannot be handled as an outpatient. Suicide risk assessment: Acute risk is low given improvement in mood and denial of SI, future-oriented, lack of access to lethal means, plan to avoid substance use, improvement in sleep, hopefulness and increased knowledge about risks of his medication and importance of using his medications as directed. Chronic risk is moderate given some non-modifiable risk factors: psychiatric co-morbid diagnoses, periods of impulsivity, prior attempt, prior psychiatric hospitalizations, family history of by suicide but also with protective factors including student, good social support, sense of responsibility to family and social supports, outpatient care in place, positive coping skills, positive problem solving, willingness to engage with treatment and self-observation. Counseled on ways to reduce acute and chronic risk including engaging with outpatient providers, using safety plan if needed, utilizing supports, taking medication, and using coping skills. Modifiable risk factors of increasing education about medication mechanism of action/risks/benefits and addressing symptoms of ADHD and ASD were addressed during hospitalization through development of new coping skills, support meeting, safety planning, and medication adjustments. Discharge physical exam: See admission H&P, MSE per above and day of discharge summary. Overall, I spent a total of 35 minutes on this case including meeting with the patient, reviewing the chart, nursing report, multidisciplinary team meeting, discharge orders, anticipatory planning, safety planning, risk assessment and documentation. Transition of Care Transition Of Care Record: was reviewed with the patient Advance Directives Advance Directives Information Provided: Yes Advance Directives: No Mental Health Advance Directive: No Living Will: No Power of Decker Operator: No Advance Directives Reason:: Declines as Mental Health Visit. Suicide Risk Level Suicide Risk Level Comments: Acute risk is low given denial of SI, see further risk assessment above. 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) Stable Relationships: Yes Supportive Family: Yes Good Rapport with Provider: Yes Discharge Data Lab Results 05/17/24 05/17/24 05/17/24 22:10 22:33 23:18 WBC 5.30 RBC 4.99 Hgb 15.4 Hct 44.9 MCV 90.0 MCH 30.9 MCHC 34.3 RDW Std Deviation 43.3 RDW Coeff of Judy 13.1 Plt Count 151 MPV 12.3 Immature Gran % (Auto) 0.2 Neut % (Auto) 61.6 Lymph % (Auto) 31.3 [place] % (Auto) 5.7 Eos % (Auto) 0.6 Baso % (Auto) 0.6 Neut # (Auto) 3.27 Lymph # (Auto) 1.66 [place] # (Auto) 0.30 Eos # (Auto) 0.03 Baso # (Auto) 0.03 Immature Gran # (Auto) 0.01 Sodium 135 L Potassium 3.7 Chloride 101 Carbon Dioxide 27 Anion Gap 7 BUN 7 Creatinine 1.02 Est Cr Clr Drug Dosing 124.2 eGFR 108.58 BUN/Creatinine Ratio 6.9 L Glucose 92 Calcium 9.8 Magnesium 1.7 Total Bilirubin 1.3 H AST 27 ALT 12 Alkaline Phosphatase 75 Total Creatine Kinase 299 H Troponin I High Sens < 2.3 Total Protein 7.8 Albumin 4.6 Globulin 3.2 Albumin/Globulin Ratio 1.4 Lipase 5 L Urine Color Yellow Urine Appearance Clear Urine pH 7.0 Ur Specific [place] 1.004 Urine Protein Negative Urine Glucose (UA) Negative Urine Ketones Negative Urine Blood Negative Urine Nitrite Negative Urine Bilirubin Negative Urine Urobilinogen Negative Ur Leukocyte Esterase Negative Salicylates < 3.0 L Urine Opiates Screen Neg Ur Methadone, Qual Neg Urine Fentanyl Screen Neg Acetaminophen < 3 L Urine Barbiturates Neg Ur Phencyclidine (PCP) Neg U Amphetamin/Meth Scrn Pos H MDMA (Ecstasy) Screen Neg U Benzodiazepines Scrn Neg Ur Cocaine Metabolite Neg U Marijuana (THC) Screen Neg Ethyl Alcohol mg/dL < 10.0 SARS-CoV-2 (PCR) 05/18/24 02:03 WBC RBC Hgb Hct MCV MCH MCHC RDW Std Deviation RDW Coeff of Judy Plt Count MPV Immature Gran % (Auto) Neut % (Auto) Lymph % (Auto) [place] % (Auto) Eos % (Auto) Baso % (Auto) Neut # (Auto) Lymph # (Auto) [place] # (Auto) Eos # (Auto) Baso # (Auto) Immature Gran # (Auto) Sodium Potassium Chloride Carbon Dioxide Anion Gap BUN Creatinine Est Cr Clr Drug Dosing eGFR BUN/Creatinine Ratio Glucose Calcium Magnesium Total Bilirubin AST ALT Alkaline Phosphatase Total Creatine Kinase Troponin I High Sens Total Protein Albumin Globulin Albumin/Globulin Ratio Lipase Urine Color Urine Appearance Urine pH Ur Specific [place] Urine Protein Urine Glucose (UA) Urine Ketones Urine Blood Urine Nitrite Urine Bilirubin Urine Urobilinogen Ur Leukocyte Esterase Salicylates Urine Opiates Screen Ur Methadone, Qual Urine Fentanyl Screen Acetaminophen Urine Barbiturates Ur Phencyclidine (PCP) U Amphetamin/Meth Scrn MDMA (Ecstasy) Screen U Benzodiazepines Scrn Ur Cocaine Metabolite U Marijuana (THC) Screen Ethyl Alcohol mg/dL SARS-CoV-2 (PCR) NEGATIVE Hospital Course (1) Stimulant intoxication: (2) ADHD (attention deficit hyperactivity disorder): (3) Autism spectrum disorder: (4) Seasonal affective disorder in remission: Plan 05/20/2024: -Tolerating all medications changes, feels safe, desires discharge and ready to return home 05/19/2024: -Start clonidine 0.1mg HS 05/18/2024: The patient was admitted to the [facility] ([facility] unit) on q15 min checks (behavioral with suicide precautions) for safety. The patient will participate in group, recreational, and milieu therapies and will be offered additional individual and family sessions as clinically appropriate. -Stop escitalopram and start fluoxetine 20mg daily -Hold Adderall for now given overdose/misuse, recommend consideration of Adderall XR vs Vyvanse in the future -Will consider option for clonidine in coming days -May benefit from more structured therapy such as [facility] Psychiatrist Name of Psychiatrist: Huma Clarke Psychiatrist's Phone Number: [phone] Date Of Appointment With Psychiatric Provider: 05/23/24 Time of Appointment with Psychiatrist: 10:40 Psychiatric Appointment Comment: insurance card, 20 dollar copay, arrive at 10:10 AM. Therapist Name of Therapist: Sees a therapist through [facility] Date of Therapist Appointment: 05/20/24 Post Discharge Appointments Primary Care Physician Name Of Family Doctor/PCP: Payton Light Date of Future Appointment with PCP: unsure Other #1: Name of Aftercare Appointment: [facility] Aftercare Appointment Comment: They will email video link to your [employer] email Discharge Plan Discharge Items Patient Disposition: Home - Self-Care Reason For Visit: UNSPECIFIED MOOD DISORDER Discharge Diagnosis: Attention-Deficit/Hyperactivity Disorder, Autism Spectrum Disorder Activity: Resume your previous activity Non-emergency contact: Primary Care Provider, Psychiatrist and Therapist Call non-emergency contact if: you have any medication questions and your symptoms worsen Follow-up/Referrals: [facility] [Primary Care Provider] - Diet: Regular Addtl Attending Provider Instructions: Optional mobile apps we discussed: -Suicide safety plan -Virtual Hope Box SPECIAL CARE INSTRUCTIONS: 1. Follow through with your scheduled aftercare appointments. If unable to keep an appointment, please call to reschedule. 2. Take your medication only as prescribed. Medication should not be changed or stopped without the approval of your doctor. In the event of worsening symptoms or concerns about side effects, contact your doctor immediately. 3. Utilize new healthy coping skills, anger management skills, and stress management skills learned during your hospitalization. Journal feelings and process them with a support person. Identify stressors or situations that may result in relapse, deterioration or inappropriate behaviors and develop a plan to deal with those issues. 4. If your coping skills are ineffective and you are in crisis, contact your outpatient providers for direction. If unable to reach your providers, please call the [facility] CRISIS LINE AT , go to the [facility] walk-in center at [address], [address], [place], or go to the closest Emergency Room. 5. Avoid alcohol and un-prescribed drugs. 6. You have been provided with the Mental Health Advance Directives Pamphlet for your review. 7. Your condition is stable for discharge to outpatient level of care, but recovery is an ongoing process. Ifthoughts to harm yourself or others return, follow the safety plan developed during your stay. Planning for a safe return home includes securing weapons. Our treatment team recommends weaponsbe removed from the home until your outpatient provider reassesses your progress. In rare cases where the items themselvescannot be removed, guns and ammunitionshould be secured separatelyand keys stored by a reliable personoutside of the home. If you were admitted on an involuntary commitment, the police or other legal authorities may be involved in this process. AFTERCARE APPOINTMENTS: * Please call your insurance company prior to your scheduled appointment to confirm your aftercare providers are covered. Take your insurance information to your appointments. WHO TO CALL AND WHEN: Medical Emergencies: For questions or emergencies related to your hospital stay, please contact the Inpatient Behavioral Health Unit at [phone]. A psychiatric cns is on-call 22/09 for the Behavioral Health Unit for emergencies At any time you feel your situation is an emergency, you may also call 911 immediately. National Crisis Hotline: 494 Pending Studies at Discharge: No Stand-Alone Forms: [facility] [employer] Medications and DC Order Prescriptions: New clonidine HCl 0.1 mg Tablet 0.1 mg PO HS 30 Days Qty: 30 0RF fluoxetine 20 mg Capsule 20 mg PO QAM 30 Days Qty: 30 0RF hydroxyzine HCl 50 mg tablet 50 mg PO HS PRN (Reason: anxiety/insomnia) 30 Days Qty: 30 0RF Discontinued escitalopram oxalate [Lexapro] 20 mg tablet 20 mg DAILY dextroamphetamine-amphetamine 15 mg tablet 15 mg PO Discharge Orders: Discharge Order (Routine); Ordered 05/20/24 Ordered By: Mari Whyte Admission Data Admit Date/Time: 05/18/24 04:11 Attending Provider: Mari Whyte Admit Provider: Mari Whyet Primary Care Provider: [facility] Coding Level of Care Code 01470 D/C day mgmt > 30 min Diagnoses Stimulant intoxication F15.929 ADHD (attention deficit hyperactivity disorder) F90.9 Autism spectrum disorder F84.0 Seasonal affective disorder in remission F33.40
[2024-05-20 10:47] LABS: Amphetamine Urine, Confirm >15000 ng/mL (<250); Methamphetamine, Ur Confirm NEGATIVE ng/mL (<250)
== END 2024-05-20 13:29 | disposition home or self-care (01) | DRG 918 ==
LOC: ED 21:41 → MERGE 05-18 04:11 → 3S 05-18 04:11